=== PATIENT | female | born 1985 | race Caucasian/White ===

== ENCOUNTER 2020-06-07 10:21 | Outpatient (CLI) | payer OTHER ==
--- NOTE | 2020-06-09 05:37 | Mammography Report ---
BILATERAL DIGITAL DIAGNOSTIC MAMMOGRAM 3D/2D: 06/07/2020 CLINICAL: Palpable left breast lump. No prior exams were available for comparison. The tissue of both breasts is extremely dense, which l owers the sensitivity of mammography. There is a mass with an indistinct margin in the left breast at 7 o'clock posterior depth. No other significant masses, calcifications, or other findings are seen in either breast. IMPRESSION: INCOMPLETE: NEEDS ADDITIONAL IMAGING EVALUATION The mass in the left breast is indeterminate. An ultrasound is recommended. This exam was interpreted at Station ID: [id number]. NOTE: For mammograms, a report in lay terms will be sent to the patient. Approximately 15% of breast malignancies will not be visualized mammographically. In the management of a palpable breast mass, a negative mammogram must not discourage biopsy of a clinically suspicious lesion. Electronically Signed By: Nishant Rea M.D. jr/:06/08/2020 12:19:43 ACR BI-RADS Category 0: Incomplete 3340F PARENCHYMAL PATTERN: (VD) - The breast(s) demonstrate(s) extremely dense parenchyma, limiting the sen sitivity of mammography. BI-RADS CATEGORY: (0) - 0 Ultrasound [id number] Immediate follow-up LATERALITY: (B)
== END 2020-06-07 10:22 | disposition home or self-care (01) ==
LOC: DI 10:21
PROVIDERS: ATTEND Family Medicine
DX: N63.23 Unspecified lump in the left breast, lower outer quadrant (principal)

== ENCOUNTER 2020-06-13 11:49 | Outpatient (CLI) | payer OTHER ==
--- NOTE | 2020-06-14 15:03 | Ultrasound Report ---
LIMITED ULTRASOUND OF LEFT BREAST AND AXILLA: 06/13/2020 CLINICAL: Palpable left breast lump. Comparison is made to exams dated: 06/07/2020 mammogram - [facility], 04/06/2020 u ltrasound, 11/20/2012 ultrasound, and 11/09/2012 ultrasound biopsy - [facility]. Color flow and real-time ultrasound of the left breast axilla were performed. Ultz scale images of the real-time examination were reviewed. There is a 2 cm x 1 cm x 2 cm oval mass in the left breast at 7 o'clock posterior depth 7 cm from the nipple. There are a few angular margins. This mass is hypoechoic and correlates as palpated, with m ammography findings, and area of clinical concern. Color flow imaging demonstrates that there is an adjacent vascularity. No significant abnormalities were seen sonographically in the left axilla. IMPRESSION: SUSPICIOUS OF MALIGNANCY The 2 cm x 1 cm x 2 cm oval mass in the left breast most likely is a fibroadenoma but is at a low francisco picion for malignancy. An ultrasound guided biopsy is recommended. Findings and recommendations were discussed with the patient during today's examination. This exam was interpreted at Station ID: [id number]. Electronically Signed By: Yeison Dietrich M.D. aty/:06/13/2020 13:10:00 Ultrasound BI-RADS: 4a Low suspicion for malignancy BI-RADS CATEGORY: (4a) - Low Susp None [id number] Immediate follow-up LATERALITY: ()
== END 2020-06-13 11:50 | disposition home or self-care (01) ==
LOC: DI 11:49
PROVIDERS: ATTEND Family Medicine
DX: N63.24 Unspecified lump in the left breast, lower inner quadrant (principal)

== ENCOUNTER 2020-06-29 12:05 | Outpatient (CLI) | payer OTHER ==
[2020-06-29] MEDS ORDERED: BUFFERED LIDOCAINE 10 ML SYRINGE ONE (12:33)
[2020-06-29] MEDS ORDERED: BUFFERED LIDOCAINE 10 ML SYRINGE IU ONE (16:35)
--- NOTE | 2020-06-30 08:21 | Mammography Report ---
UNILATERAL LEFT DIGITAL DIAGNOSTIC MAMMOGRAM 3D/2D: 06/29/2020 CLINICAL: Post left breast ultrasound biopsy, clip placment imaging. Comparison is made to exams dated: 06/13/2020 ultrasound, 06/07/2020 mammogram - [facility], and 04/06/2020 ultrasound - [facility]. The tissue of left breast is extre nithya dense, which lowers the sensitivity of mammography. There is a marker clip in the appropriate position in the left breast at 7 o'clock posterior depth 7 cm from the nipple. IMPRESSION: POST PROCEDURE MAMMOGRAM FOR MARKER PLACEMENT There was a successful marker clip placement in the left breast posterior depth. This exam was interpreted at Station ID: [id number]. NOTE: For mammograms, a report in lay terms will be sent to the patient. Approximately 15% of breast malignancies will not be visualized mammographically. In the management of a palpable breast mass, a negative mammogram must not discourage biopsy of a clinically suspicious lesion. Electronically Signed By: Nishant Rea M.D., jr/julio:06/29/2020 15:14:36 ACR BI-RADS Category Post-procedure mammogram for marker placement PARENCHYMAL PATTERN: (VD) - The breast(s) demonstrate(s) extremely dense parenchyma, limiting the sen sitivity of mammography. BI-RADS CATEGORY: () - RECOMMENDATION: (ADDMAM) - Recommend additional mammographic views. recall n/a LATERALITY: (B)
--- NOTE | 2020-07-05 07:06 | Ultrasound Report ---
ULTRASOUND GUIDED BIOPSY LEFT BREAST USING VACUUM DEVICE WITH MARKING DEVICE INSERTED AND POST DIGITA L MAMMOGRAPHIC IMAGIN06/29/2020 CLINICAL: Left breast mass. PATIENT CONSENT: Risks (minor bleeding, infection, vasovagal reaction and repeat procedure), benefits and alternatives were explained to the patient and written informed consent was obtained. Correlation is made to exams dated: 06/13/2020 ultrasound, 06/07/2020 mammogram - [facility], 04/06/2020 ultrasound, 11/20/2012 ultrasound, and 11/09/2012 ultrasound biopsy - [facility]. An ultrasound guided biopsy using real-time ultrasound was performed for the 2 cm x 1 cm x 2 cm mass located in the left breast at 7 o'clock posterior depth 7 cm from the nipple. This was described on the previous ultrasound report. The skin was prepped in the usual manner. Local anesthetic was admi nistered to the access site. A skin ángel was made in the breast. The abnormality was approached fro m the lateral aspect. A 12 gauge biopsy needle was placed adjacent to the abnormality under ultrasou nd guidance. Once the needle was documented to be in the correct location, three specimens were obta ined using the [employer] system. A clip was inserted into the biopsy cavity. A skin closure stri p and a sterile dressing were applied to the access site. Post procedure digital mammographic imagin g demonstrates the location device at the targeted area. The specimens were sent to the laboratory f or pathological analysis. IMPRESSION: ULTRASOUND GUIDED BIOPSY BENIGN Ultrasound guided biopsy of the 2 cm x 1 cm x 2 cm mass in the left breast at 7 o'clock posterior dep th 7 cm from the nipple was successful with no apparent post procedure complications. Pathology indicates benign fibroadenoma (FA). Pathology results are concordant with imaging findings . A 5 year screening mammogram at age 40 is recommended. This exam was interpreted at Station ID: [id number]. Nishant Parks M.D., jr,slc/:07/04/2020 17:42:20 BI-RADS CATEGORY: () - Mammogram [id number] 5 year screening LATERALITY: (B)
== END 2020-06-29 12:06 | disposition home or self-care (01) ==
LOC: DI 12:05
PROVIDERS: ATTEND Family Medicine
DX: D24.2 Benign neoplasm of left breast (principal)
CPT/HCPCS: 19083